=== PATIENT | female | born 1985 | race Caucasian/White ===

== ENCOUNTER 2023-10-04 01:17 | Emergency (ER) | payer BC, MEDICAID, OTHER ==
[2023-10-04 01:53] VITALS: BP 156/92; PULSE 101
== END 2023-10-04 01:51 ==
LOC: MW.ED 01:17
DX: I10 Essential (primary) hypertension (principal); Z85.828 Personal history of other malignant neoplasm of skin; Z88.1 Allergy status to other antibiotic agents; Z88.0 Allergy status to penicillin; Z88.8 Allergy status to other drugs, medicaments and biological substances; Z79.899 Other long term (current) drug therapy
CPT/HCPCS: 99282; 99283

== ENCOUNTER 2024-03-03 16:16 | Emergency (ER) | payer MEDICAID ==
[2024-03-03] MEDS: Ibuprofen 600 MG Tab PO ONE (17:00)
[2024-03-03] MEDS: Acetaminophen 325 MG Tab PO ONE (17:01)
[2024-03-03 17:13] LABS: CORONAVIRUS COVID-19 NAA NEGATIVE (NEGATIVE); INFLUENZA A NAA NEGATIVE (NEGATIVE); INFLUENZA B NAA NEGATIVE (NEGATIVE); RESPIRATORY SYNCYTIAL VIR NAA NEGATIVE (NEGATIVE)
[2024-03-03] MEDS: amLODIPine 5 MG Tab PO ONE (18:00)
[2024-03-03 18:01] VITALS: BP 159/85
[2024-03-03 18:02] VITALS: PULSE 89
== END 2024-03-03 18:02 | disposition home or self-care (01) ==
LOC: MW.ED 16:16
DX: I10 Essential (primary) hypertension (principal); Z88.1 Allergy status to other antibiotic agents; Z88.0 Allergy status to penicillin; Z88.8 Allergy status to other drugs, medicaments and biological substances; Z90.710 Acquired absence of both cervix and uterus; Z75.8 Other problems related to medical facilities and other health care
CPT/HCPCS: 0241U; 87651; 99284; A9270; 99283

== ENCOUNTER 2024-03-05 13:14 | Emergency (ER) | payer MEDICAID ==
[2024-03-05 14:25] LABS: BASOPHILS ABSOLUTE AUTO 0.06 K/uL (0.00-0.20); BASOPHILS PERCENT AUTO 0.5 % (0.0-1.0); EOSINOPHILS ABSOLUTE AUTO 0.17 K/uL (0.00-0.45); EOSINOPHILS PERCENT AUTO 1.5 % (0.0-6.0); HEMATOCRIT 40.9 % (37.0-47.0); HEMOGLOBIN 13.9 g/dL (12.0-16.0); IMMATURE GRAN ABSOLUTE AUTO 0.04 K/uL (0.00-0.05); IMMATURE GRAN PERCENT AUTO 0.4 % (0.0-0.4); LYMPHOCYTES ABSOLUTE AUTO 2.09 K/uL (1.00-4.80); MEAN CORPUSCULAR HEMOGLOBIN 29.6 pg (28.0-32.0); MEAN PLATELET VOLUME 10.2 fL (9.4-12.3); MONOCYTES ABSOLUTE AUTO 0.53 K/uL (0.00-0.80); MONOCYTES PERCENT AUTO 4.8 % (0.0-8.0); NEUTROPHILS ABSOLUTE AUTO 8.11 K/uL (1.80-7.70); NEUTROPHILS PERCENT AUTO 73.8 % (41.0-71.0); PLATELET COUNT,PLT 295 K/uL (150-400)
[2024-03-05 14:31] LABS: APPEARANCE,URINE CLEAR; BILIRUBIN,URINE NEGATIVE (NEGATIVE); COLOR,URINE YELLOW; GLUCOSE,URINE NEGATIVE (NEGATIVE); KETONES,URINE NEGATIVE (NEGATIVE); LEUKOCYTE ESTERASE,URINE TRACE (NEGATIVE); NITRITE,URINE NEGATIVE (NEGATIVE); OCCULT BLOOD,URINE NEGATIVE (NEGATIVE); PROTEIN,URINE NEGATIVE (NEGATIVE); UROBILINOGEN,URINE 0.2 EU/dL (<2.0)
[2024-03-05 14:39] LABS: BACTERIA,URINE 1+ (NEGATIVE); EPITHELIAL CELLS,URINE FEW (NONE-FEW); RBC,URINE 0-2 (0-2/HPF)
[2024-03-05] MEDS: amLODIPine 5 MG Tab PO STA (14:56)
[2024-03-05 15:05] LABS: A/G RATIO 1.1 (0.9-1.6); ALBUMIN 3.7 g/dL (3.4-5.0); BILIRUBIN TOTAL 0.3 mg/dL (0.2-1.0); CARBON DIOXIDE,CO2 28.2 mmol/L (21.0-32.0); CREATININE 0.9 mg/dL (0.6-1.0); EST CRCL DRUG DOSING (CG) 63.95 mL/min; POTASSIUM,K 3.7 mmol/L (3.5-5.1); PROTEIN TOTAL,TP 7.2 g/dL (6.4-8.2)
[2024-03-05 15:24] LABS: INR 0.99 (0.86-1.11); PTT,PARTIAL THROMBOPLSTIN TIME 26.8 SEC (23.9-30.7)
[2024-03-05] MEDS: Labetalol 100 MG/20 ML MDV IVPUSH STA ×2 (15:27→15:28)
[2024-03-05] MEDS: Aspirin 81 MG Tab.Chew PO STA (15:28)
[2024-03-05 16:40] VITALS: BP 158/102; PULSE 82
[2024-03-05] MEDS: Enoxaparin 100 MG/1 ML Syringe SUBCUT STA (17:07)
== END 2024-03-05 19:22 ==
LOC: MW.ED 13:14
DX: I16.1 Hypertensive emergency (principal); I21.A1 Myocardial infarction type 2; I10 Essential (primary) hypertension; Z88.1 Allergy status to other antibiotic agents; Z88.8 Allergy status to other drugs, medicaments and biological substances; Z88.0 Allergy status to penicillin; Z90.710 Acquired absence of both cervix and uterus; Z75.8 Other problems related to medical facilities and other health care
CPT/HCPCS: 36415; 70450; 71046; 80053; 81001; 84484; 84703; 85025; 85610; 85730; 87086; 93005; 96372; 96374; 99285; A9270; J1650; J1921; 93010

== ENCOUNTER 2024-05-22 19:00 | Emergency (ER) | payer MEDICAID ==
[2024-05-22 19:45] VITALS: BP 151/93; PULSE 98
== END 2024-05-22 19:47 | disposition left against medical advice (07) ==
LOC: MW.ED 19:00
DX: Z53.21 Procedure and treatment not carried out due to patient leaving prior to being seen by health care provider (principal)

== ENCOUNTER 2024-05-28 15:49 | Emergency (ER) | payer MEDICAID | END 2024-05-28 16:14 | disposition left against medical advice (07) | LOC: MW.ED 15:49 | DX: I10 Essential (primary) hypertension (principal); Z90.710 Acquired absence of both cervix and uterus; Z79.899 Other long term (current) drug therapy; Z88.0 Allergy status to penicillin; Z88.8 Allergy status to other drugs, medicaments and biological substances | CPT/HCPCS: 99283; 99284 ==

== ENCOUNTER 2025-04-10 23:33 | Emergency (ER) | payer MEDICAID ==
[2025-04-11 00:33] LABS: BASOPHILS ABSOLUTE AUTO 0.05 K/uL (0.00-0.20); BASOPHILS PERCENT AUTO 1.0 % (0.0-1.0); EOSINOPHILS ABSOLUTE AUTO 0.03 K/uL (0.00-0.45); EOSINOPHILS PERCENT AUTO 0.6 % (0.0-6.0); IMMATURE GRAN ABSOLUTE AUTO 0.02 K/uL (0.00-0.05); IMMATURE GRAN PERCENT AUTO 0.4 % (0.0-0.4); LYMPHOCYTES ABSOLUTE AUTO 1.35 K/uL (1.00-4.80); LYMPHOCYTES PERCENT AUTO 26.0 % (24.0-44.0); MEAN PLATELET VOLUME 9.9 fL (9.4-12.3); MONOCYTES ABSOLUTE AUTO 0.33 K/uL (0.00-0.80); MONOCYTES PERCENT AUTO 6.3 % (0.0-8.0); NEUTROPHILS ABSOLUTE AUTO 3.42 K/uL (1.80-7.70); NEUTROPHILS PERCENT AUTO 65.7 % (41.0-71.0); NRBC ABSOLUTE 0.00 K/uL (0.00-0.02); NRBC PERCENT 0.0 /100WBC (0.0-0.2); PLATELET COUNT,PLT 285 K/uL (150-400); RED BLOOD CELL COUNT 4.86 M/uL (4.10-5.30); WHITE BLOOD CELL COUNT,WBC 5.20 K/uL (3.9-11.3)
[2025-04-11 01:22] LABS: A/G RATIO 1.0 (0.9-1.6); ALANINE AMINOTRANSFERASE,ALT 36.0 IU/L (14-63); ASPARTATE AMNIOTRANSFERASE,AST 27.0 IU/L (15-37); BILIRUBIN TOTAL 0.1 mg/dL (0.2-1.0); BLOOD UREA NITROGEN,BUN 13.0 mg/dL (7.0-18.0); CARBON DIOXIDE,CO2 24.6 mmol/L (21.0-32.0); CHLORIDE,CL 105.0 mmol/L (98-107); CREATININE 1.0 mg/dL (0.6-1.0); EST CRCL DRUG DOSING (CG) 56.43 mL/min; GLUCOSE RANDOM 104.0 mg/dL (74-106); POTASSIUM,K 3.8 mmol/L (3.5-5.1); PROTEIN TOTAL,TP 7.9 g/dL (6.4-8.2); SODIUM,NA 139.0 mmol/L (136-145)
[2025-04-11 01:27] LABS: ESTIMATED GFR 73.0 mL/min (>60)
[2025-04-11 03:06] VITALS: BP 142/75; PULSE 95
== END 2025-04-11 03:05 ==
LOC: MW.ED 23:33
DX: S16.1XXA Strain of muscle, fascia and tendon at neck level, initial encounter (principal); F10.129 Alcohol abuse with intoxication, unspecified; I10 Essential (primary) hypertension; I25.2 Old myocardial infarction; Z75.3 Unavailability and inaccessibility of health-care facilities; Z88.8 Allergy status to other drugs, medicaments and biological substances; Z88.0 Allergy status to penicillin; Z79.899 Other long term (current) drug therapy; X58.XXXA Exposure to other specified factors, initial encounter; Y93.89 Activity, other specified
CPT/HCPCS: 36415; 71046; 80053; 83735; 84484; 85025; 93005; 96360; 99284; J7030; 93010